=== PATIENT | female | born 1985 | race Caucasian/White ===

== ENCOUNTER 2024-07-11 10:29 | Emergency (ER) | payer OTHER, SELFPAY ==
[2024-07-11 10:37] VITALS: BP 130/83; PULSE 81; RESP 16; TEMP 36.6; O2SAT 100
--- NOTE | 2024-07-11 10:51 | ED.URI ---
HPI - URI/Sore Throat General Chief Complaint: Upper Respiratory Infection Stated Complaint: COUGH/BODY ACHES/NASAL CONGESTION/TIRED Time Seen by Provider: 07/11/24 10:50 Source: patient, RN notes reviewed and old records reviewed Mode of arrival: ambulatory Limitations: no limitations History of Present Illness HPI Narrative: 38 year old female who presents to [facility] care with complaints of 5 day history of cough with expectoration of green phlegm, body aches,sore throat, right ear feels clogged.. Patient reports negative home COVID test on Tuesday. Patient reports that she has мария taking Ibuprofen, Aleve, Laurita and NyQuil for her symptoms. Patient reports that she is fatigued and cough tends to be worse in the morning MD elicited complaint: cough and sore throat Onset (ago): day(s) (5) Severity: moderate Description of mucous: green Able to tolerate fluids by mouth: Yes Treatments prior to arrival: ibuprofen and other (Aleve Laurita and NyQuil) Related Data Allergies Allergy/AdvReac Type Severity Reaction Status Date / Time Penicillins Allergy Rash Verified 07/11/24 10:47 Review of Systems Review of Systems: CONSTITUTIONAL: Report malaise, no chills, sweats, no fever. EYES: Denies visual changes, redness, or discharge. ENT: Reports rhinorrhea, congestion, no sinus pain,right otalgia and scratchy sore throat. CARDIOVASCULAR: Denies chest pain, palpitations, or edema. RESPIRATORY: Reports cough.? Denies dyspnea. GASTROINTESTINAL: Denies abdominal pain, nausea, vomiting, diarrhea SKIN: Denies rash or itching. MUSCULOSKELETAL: Reports some myalgia. NEUROLOGIC: Denies headache. All systems reviewed & are unremarkable except as noted in HPI and below PMFSH Past Medical History Medical History (Updated 07/13/24 @ 10:18 by Georgette Billings NP) Hx of migraines Surgical History Surgical History (Updated 07/13/24 @ 10:18 by Georgette Billings NP) Previous section Social History Social History (Updated 07/13/24 @ 10:19 by Georgette Billings NP) Smoking status: Never smoker Alcohol intake: current Alcohol use details: social Substance use type: does not use Living arrangements: with family Gender identity (if verbalized by the patient): Female Comments At time of signature, agree with nursing past medical, surgical, social and family history. There is no relevant family history pertinent to the presenting complaint Exam Narrative: GENERAL: Well-appearing, well-nourished, and in no acute distress. HEAD: Normocephalic EYES: PERRLA, conjunctivae clear ENT: Nares clear, turbinates edematous and erythematous, clear discharge. Mucous membranes moist. TM pearly dorantes with dull light reflex bilaterally; no tragal tenderness. Oropharynx erythematous without lesions. Tonsils not enlarged and without exudate, no drooling, no hoarseness, no trismus, uvula midline.post nasal drainage. NECK: Supple. lymphadenopathy CHEST: Clear to auscultation, breath sounds equal. No wheezing, rhonchi, rales, or stridor. No respiratory distress, speaks in full sentences.loose productive cough of green tinged phlegm SAO2 100% on room air HEART: Regular rate and rhythm. No murmur heard. SKIN: Warm, dry, no rash. NEURO: Alert and oriented x3. PSYCH: Normal mood and affect Course Course Emergency Course: Patient is aware of diagnosis, understands and agrees to treatment plan.? Anticipatory guidance given.? Patient agrees to follow-up as directed and is aware of reasons to seek care at the emergency department. Portions of this record may have been created with voice recognition software Level of Care: Express Care Visit Vital Signs Vital signs: Vital Signs Temperature 36.6 C 07/11/24 10:37 Pulse Rate 81 07/11/24 10:37 Respiratory Rate 16 07/11/24 10:37 Blood Pressure 130/83 07/11/24 10:37 Pulse Oximetry 100 07/11/24 10:37 Temperature 36.6 C 07/11/24
== END 2024-07-11 11:14 | disposition home or self-care (01) ==
PROVIDERS: Emergency Provider Registered Nurse; PCP Family Medicine Sports Medicine
DX: R09.81 Nasal congestion (principal); R05.9 Cough, unspecified
CPT/HCPCS: 99213; G0463